=== PATIENT | male | born 1970 | race Caucasian/White ===

== ENCOUNTER → 2016-05-19 | Outpatient (CLI) | payer SELFPAY ==
[2016-05-26 09:40] LABS: Mis test requested (Blood) Estradiol
== END | disposition home or self-care (01) ==
LOC: LABWHC1 16:37
DX: E29.1 Testicular hypofunction (principal)
CPT/HCPCS: 36415; 82670

== ENCOUNTER → 2016-07-20 | Outpatient (CLI) | payer SELFPAY | END | disposition home or self-care (01) | LOC: LABWHC1 15:05 | DX: B19.9 Unspecified viral hepatitis without hepatic coma (principal) | CPT/HCPCS: 82670 ==

== ENCOUNTER → 2017-01-21 | Outpatient (CLI) | payer SELFPAY ==
[2017-01-21 11:51] LABS: ALT 31 U/L (21-72); AST 24 U/L (17-59); Alkaline Phosphatase 42 U/L (38-126); Anion Gap 9 mmol/L; Blood Urea Nitrogen 14 mg/dL (9-20); Calcium 9.1 mg/dL (8.4-10.2); Carbon Dioxide 26 mmol/L (22-30); Chloride 104 mmol/L (98-107); Glucose 100 mg/dL (74-99); Non-African American GFR(MDRD) >60 (>60 ml/min/1.73 sqM); Potassium 4.5 mmol/L (3.5-5.1); Sodium 139 mmol/L (137-145); Total Bilirubin 0.4 mg/dL (0.2-1.3); Total Protein 6.9 g/dL (6.3-8.2)
== END | disposition home or self-care (01) ==
LOC: LABWHC1 11:10
DX: E29.1 Testicular hypofunction (principal)
CPT/HCPCS: 36415; 80053; 82670

== ENCOUNTER → 2017-04-21 | Outpatient (CLI) | payer SELFPAY | END | disposition home or self-care (01) | LOC: LABWHC1 10:45 | DX: E29.1 Testicular hypofunction (principal) | CPT/HCPCS: 36415; 82670 ==

== ENCOUNTER → 2017-06-30 | Outpatient (CLI) | payer SELFPAY | END | disposition home or self-care (01) | LOC: LABWHC1 10:43 | DX: E29.1 Testicular hypofunction (principal) | CPT/HCPCS: 36415 ==

== ENCOUNTER → 2017-09-15 | Outpatient (CLI) | payer SELFPAY | END | disposition home or self-care (01) | LOC: LABWHC1 10:27 | DX: E29.1 Testicular hypofunction (principal) | CPT/HCPCS: 36415; 84146 ==

== ENCOUNTER → 2017-12-14 | Outpatient (CLI) | payer SELFPAY | END | disposition home or self-care (01) | LOC: LABWHC1 10:03 | DX: E29.1 Testicular hypofunction (principal) | CPT/HCPCS: 36415 ==